=== PATIENT | male | born 1970 ===

== ENCOUNTER 2024-03-10 10:13 | Emergency (ER) | payer SELFPAY ==
[2024-03-10 10:25] VITALS: BP 165/89; PULSE 82; RESP 16; TEMP 97.7; BMI 26.4
== END 2024-03-10 10:35 | disposition home or self-care (01) ==
LOC: FER 10:13
PROC: 0XQKXZZ Repair Left Hand, External Approach (ICD-10-PCS; principal; 2024-03-10)
DX: S61.412A Laceration without foreign body of left hand, initial encounter (principal); W26.0XXA Contact with knife, initial encounter
CPT/HCPCS: 99282-25